=== PATIENT | female | born 1995 | race Caucasian/White ===

== ENCOUNTER 2018-07-25 03:20 | Emergency (ER) | payer OTHER ==
[~2018-07-25] VITALS: Ht 165.1 cm; Wt 60.0 kg
--- NOTE | 2018-07-25 03:36 | NUR ---
PT BIB [facility] C/O GROSS ETOH INTOXICATION AT A CONCERT TONIGHT. [facility] OF 9 NOTED BY [facility]. [facility] OF 14 NOTED IN ED. PT IS HARD TO ROUSE, BUT IS ROUSABLE TO VOICE. NO OTHER MEDICAL COMPLAINTS FROM PT TONIGHT. PT MILDLY HYPOTENSIVE VIA [facility]. GIVEN 500 ML NS AND BP IS MILDLY HYPO IN ED. MD AWARE. MONITORING APPLIED. VSS. CALL LIGHT WITHIN REACH. FRIENDS AT BEDSIDE.
[2018-07-25 04:53] VITALS: BP 106/42
--- NOTE | 2018-07-25 05:36 | NUR ---
PT IS A+Ox4 AND STANDING AT BEDSIDE AT THIS TIME. AWARE. PT TBDC W/ FRIENDS.
== END 2018-07-25 05:58 | disposition home or self-care (01) ==
LOC: ED 05:57
DX: F10.121 Alcohol abuse with intoxication delirium (principal); G92 Toxic encephalopathy
CPT/HCPCS: 99283